=== PATIENT | female | born 1990 | race Caucasian/White ===

== ENCOUNTER 2017-12-03 11:14 | Emergency (ER) | payer OTHER ==
[~2017-12-03] VITALS: Ht 160 cm; Wt 88.6 kg
[2017-12-03 11:21] VITALS: Ht 160 cm; Wt 88.6 kg
[2017-12-03] MEDS ORDERED: OCELLA 3 MG-0.1 EACH PO (11:23)
[2017-12-03 12:23] LABS: HCG URINE NEGATIVE (NEGATIVE)
[2017-12-03 12:27] LABS: APPEARANCE CLOUDY (CLEAR); BACTERIA NONE SEEN /hpf (NONE SEEN); BILIRUBIN NEGATIVE (NEGATIVE); COLOR DK YELLOW (YELLOW); EPITHELIAL CELLS 0-5 /hpf (0-5); GLUCOSE NEGATIVE (NEGATIVE); KETONE NEGATIVE (NEGATIVE); NITRITE NEGATIVE (NEGATIVE); PROTEIN 1+ mg/dL (NEGATIVE); RED CELLS - URINE >50 /hpf (0-5); SPECIFIC GRAVITY 1.015 (1.005-1.020); UROBILINOGEN NORMAL (NORMAL); WHITE CELLS - URINE 0-5 /hpf (0-5)
[2017-12-03 13:23] VITALS: BP 146/88
== END 2017-12-03 13:23 | disposition home or self-care (01) ==
LOC: D.ER 11:14
PROVIDERS: Emergency Medicine
DX: N81.10 Cystocele, unspecified (principal)

== ENCOUNTER 2017-12-17 08:00 | Outpatient (CLI) | payer OTHER ==
[~2017-12-17 08:00] MED LIST: OCELLA 3 MG-0.1 EACH PO
[2017-12-23 07:16] VITALS: BMI 34.4
== END 2017-12-17 08:01 | disposition home or self-care (01) ==
LOC: D.OPS 08:00
DX: N81.4 Uterovaginal prolapse, unspecified (principal); Z01.810 Encounter for preprocedural cardiovascular examination; Z01.811 Encounter for preprocedural respiratory examination; Z01.812 Encounter for preprocedural laboratory examination; Z53.9 Procedure and treatment not carried out, unspecified reason

== ENCOUNTER 2017-12-23 06:45 | Day surgery (SDC) | payer OTHER ==
[2017-12-17 14:23] LABS: BASOPHILS 0.2 % (0-2); HEMATOCRIT 37.5 % (36.0-48.0); HEMOGLOBIN 13.1 g/dL (12-16); IMMATURE GRANULOCYTES 0.1 % (0-5); LYMPHOCYTES 35.2 % (15-50); MCHC 34.9 g/dL (31.0-37.0); MEAN PLATELET VOLUME 10.1 fL (7.4-10.4); MONOCYTES 7.4 % (2-11); NEUTROPHILS 56.1 % (40-80); RBC 4.36 10x6/uL (4.00-5.40); RDW 11.9 % (11.5-14.5); WBC 8.3 10x3/uL (4.8-10.8)
[2017-12-17 14:24] LABS: PLATELET COUNT 294 10x3/uL (130-400)
[2017-12-17 14:31] LABS: CALC OSMOLALITY 275 mosm/kg (275-300); CALCIUM 8.9 mg/dL (8.5-10.1); CARBON DIOXIDE 25.8 mmol/L (21.0-32.0); CHLORIDE - SERUM 104 mmol/L (98-107); CREATININE - SERUM 0.8 mg/dL (0.6-1.3); GLUCOSE 99 mg/dL (74-106); SODIUM 139 mmol/L (136-145); UREA NITROGEN 8 mg/dL (7-18); eGFR NON AFRICAN AMERICAN > 90 mL/min (90-120)
[~2017-12-23] VITALS: Ht 160 cm; Wt 88.0 kg
[2017-12-23 07:16] VITALS: BP 130/83; Ht 160 cm; Wt 88.0 kg
[2017-12-23 08:08] LABS: HCG URINE NEGATIVE (NEGATIVE)
== END 2017-12-23 19:50 | disposition home or self-care (01) ==
LOC: D.OPS 06:45 → D.PAN 08:15 → D.OPS 08:15
PROVIDERS: Obstetrics & Gynecology
DX: N81.2 Incomplete uterovaginal prolapse (principal); D25.1 Intramural leiomyoma of uterus; D25.2 Subserosal leiomyoma of uterus; Z01.812 Encounter for preprocedural laboratory examination